=== PATIENT | male | born 1940 | race Caucasian/White ===

== ENCOUNTER 2018-01-22 11:15 | Emergency (ER) | payer OTHER ==
--- NOTE | 2018-01-22 13:13 | EDPHY ---
H & P Time Seen by Provider: 01/22/18 11:56 HPI/ROS: HPI Right thigh pain. 77-year-old male referred to the emergency department by his ventilation worker Dr. Tim Antonio. This patient notice some pain to the inner distal aspect of his right thigh about a week ago. He reports that over the last 1-2 days the pain has worsened and he has had swelling and more tenderness to this area. He denies chest pain. No shortness of breath. He was referred to the emergency department to evaluate for DVT. No history of trauma. He does not have any history of coagulopathy. No prolonged sedentary activity. ROS: Constitutional: No fever, no chills. No weakness. Respiratory: No cough. No shortness of breath. Cardiac: No chest pain, no palpitations. Musculoskeletal: As above. No other extremity pain. Skin: As above. Neurological: No headache. No focal weakness or altered sensation. Past medical history: Sepsis, bladder infections, rheumatic fever, heart murmur , knee surgery, aortic valve replacement, atrial fibrillation, pleural effusions. Social history: Nonsmoker. No alcohol. Here with his . Physical Exam: General Appearance: Alert, no distress. This patient is responding to questions appropriately and in full sentences. This patient appears well- hydrated and well-nourished. Eyes: Pupils equal and round no pallor or injection. No lid edema, erythema or injection. Right lower extremity exam: He has an area representing about 2% of his total body surface area medial distal thigh which is warm to the touch, mildly erythematous and with palpable cords. Exam is consistent with superficial thrombophlebitis. The right lower extremity is otherwise not significantly asymmetrical in comparison to the left lower extremity. The right lower extremity is neurovascularly intact. Neurological: Motor sensory function is grossly intact. Cranial nerves are normal. Gait is normal. Skin: Warm and dry, no rashes. Musculoskeletal: Neck is supple and nontender. Extremities are symmetrical. All joints range without pain or impingement. Psychiatric: No agitation. No depression. Database: EKG: Imaging: Right lower extremity Doppler venous ultrasound: Significant for superficial thrombophlebitis medial distal thigh. No evidence of DVT. The thrombus is not within 5 cm of the saphenofemoral junction. At its longus point the thrombus measures 4.5 cm. Results were discussed with staff radiologist Dr. Feroz Restrepo. Procedures: Emergency department course: Triage vital signs reviewed and are normal. Patient sent for Doppler ultrasound as noted above. 1:50 p.m., patient re-evaluated. Plan will be to treat this patient initially with high-dose ibuprofen and cool compresses for the next 5 days and then have a repeat Doppler ultrasound arranged by the patient's primary care physician or ventilation worker Dr. Tim Antonio who referred the patient to the emergency department initially. 2:00 p.m., I spoke with Dr. Tim Antonio. Results of ultrasound and treatment plan discussed with him. He will arrange to have the ultrasound repeated on Sunday. He will then see this patient on Sunday in the office. This plan was discussed with the patient. He understands the need for follow- up and repeat ultrasound in 5 days. Return to emergency department precautions have been reviewed with him. All of his questions were answered. He was discharged from the emergency department in good condition. Differential Diagnosis: The differential diagnosis on this patient includes but is not limited to superficial thrombophlebitis. Cellulitis, DVT, traumatic injury unlikely. This represents a partial list of diagnoses considered. These considerations are based on history, physical exam, past history, reassessment and diagnostic testing. Smoking Status: Never smoked Constitutional: Initial Vital Signs Temperature (C) 36.9 C 01/22/18 11:20 Heart Rate 77 01/22/18 11:20 Respiratory Rate 17 01/22/18 11:20 Blood Pressure 120/80 01/22/18 11:20 O2 Sat (%) 92 01/22/18 11:20 O2 Delivery Mode Room Air Allergies/Adverse Reactions: hydrocodone [Hydrocodone] Allergy (Severe, Verified 01/22/18 11:19) Vomiting acetaminophen [From Percocet] Allergy (Verified 01/22/18 11:19) oxycodone [From Percocet] Allergy (Verified 01/22/18 11:19) Home Medications: Medication Instructions Recorded Aspirin EC [Aspirin EC 325 mg (*)] 325 mg PO DAILY #0 tab 02/06/14 Medical Decision Making - Diagnostics Imaging Results: Imaging Impressions Extremity Venous Study 01/22/18 11:41 Impression: 1. There is no sonographic evidence of deep vein thrombosis in the right lower extremity. 2. Superficial venous thrombophlebitis involving the greater saphenous venous varices along the [id number] inner thigh, corresponding the patient's area of clinical concern. Findings were discussed with Viviane Marquez MD at 13:05, on 01/22/2018. Departure - Departure Disposition: Home, Routine, Self-Care Clinical Impression: Superficial thrombophlebitis of lower extremity Condition: Good Instructions: Superficial Thrombophlebitis (ED) Additional Instructions: Read and follow provided instructions. Follow-up with your ventilation worker, Dr. Tim Antonio. He will arrange for you to have a repeat ultrasound of your right lower extremity on Sunday. He will then see you in the office on Sunday for re-evaluation and further management. Ibuprofen dosin mg every 6 hours with meals for the next 4 days, then 600 mg every 8 hr for the next 3 days. Return to the emergency department for worsening pain, discoloration, swelling, fever or other serious concerns. Referrals: NONE *PRIMARY CARE P,. [Primary Care Provider] - As per Instructions Tim Antonio MD [Medical Doctor] - As per Instructions
[2018-01-22 14:12] VITALS: BP 120/79
== END 2018-01-22 14:19 | disposition home or self-care (01) ==
DX: I80.01 Phlebitis and thrombophlebitis of superficial vessels of right lower extremity (principal)

== ENCOUNTER 2018-01-28 15:50 | Emergency (ER) | payer OTHER ==
[2018-01-28] MEDS ORDERED: RIVAROXABAN 15 MG TAB PO ONE (16:49)
--- NOTE | 2018-01-28 16:54 | EDPHY ---
H & P Stated Complaint: dvt on us Time Seen by Provider: 01/28/18 16:21 HPI/ROS: CHIEF COMPLAINT: DVT HISTORY OF PRESENT ILLNESS: The patient is a 77-year-old man with a history of multiple valve replacements most recently 1 year ago as well as AFib that was repaired by Maze procedure. He is no longer requiring anticoagulation. About a week ago he noticed a painful swollen area to his right lower thigh. He was seen here diagnosed with thrombophlebitis. He was started on ibuprofen which she has been taking 3 times daily. He had a follow-up ultrasound today which showed extension of the thrombus into 1 of the peroneal veins in the mid calf. He was referred here to start anticoagulation. He states that overall his swelling seems better and less painful. Severity: Moderate Modifying factors: Medication REVIEW OF SYSTEMS: Constitutional: denies: chills, fever, recent illness, recent injury EENTM: denies: blurred vision, double vision, nose congestion Respiratory: denies: cough, shortness of breath Cardiac: denies: chest pain, irregular heart rate, lightheadedness, palpitations Gastrointestinal/Abdominal: denies: abdominal pain, diarrhea, nausea, vomiting, blood streaked stools Genitourinary: denies: dysuria, frequency, hematuria, pain Musculoskeletal: See HPI Skin: denies: lesions, rash, jaundice, bruising Neurological: denies: headache, numbness, paresthesia, tingling, dizziness, weakness Hematologic/Lymphatic: denies: blood clots, easy bleeding, easy bruising Immunologic/allergic: denies: HIV/AIDS, transplant 10 systems reviewed and negative except as noted EXAM: GENERAL: Well-appearing, well-nourished and in no acute distress. HEAD: Atraumatic, normocephalic. EYES: Pupils equal round and reactive to light, extraocular movements intact, sclera anicteric, conjunctiva are normal. ENT: TMs normal, nares patent, oropharynx clear without exudates. Moist mucous membranes. NECK: Normal range of motion, supple without lymphadenopathy or JVD. LUNGS: Breath sounds clear to auscultation bilaterally and equal. No wheezes rales or rhonchi. HEART: Regular rate and rhythm without murmurs, rubs or gallops. ABDOMEN: Soft, nontender, normoactive bowel sounds. No guarding, no rebound. No masses appreciated. BACK: No CVA tenderness, no spinal tenderness, step-offs or deformities EXTREMITIES: Slightly tender indurated area of superficial thrombophlebitis right medial distal thigh . No warmth. He states that it is improved significantly. No tenderness or swelling to the calf. Negative Homans NEUROLOGICAL: Cranial nerves II through XII grossly intact. Normal speech, normal gait. 5/5 strength, normal movement in all extremities, normal sensation , normal reflexes PSYCH: Normal mood, normal affect. SKIN: Warm, dry, normal turgor, no visible rashes or lesions. Source: Patient Exam Limitations: No limitations - Personal History Current Tetanus Diphtheria and Acellular Pertussis (TDAP): Unsure - Medical/Surgical History Hx Asthma: No Hx Chronic Respiratory Disease: No Hx Diabetes: No Hx Cardiac Disease: Yes Hx Renal Disease: No Hx Cirrhosis: No Hx Alcoholism: No Hx HIV/AIDS: No Hx Splenectomy or Spleen Trauma: No Other PMH: sepsis, bladder infections, rhematic fever, heart murmur, knee sx, need heart valve replacement, afib. pleural effusions. - Family History Significant Family History: No pertinent family hx - Social History Smoking Status: Never smoked Alcohol Use: Sober Drug Use: None Constitutional: Initial Vital Signs Temperature (C) 37 C 01/28/18 15:54 Heart Rate 80 01/28/18 15:54 Respiratory Rate 17 01/28/18 15:54 Blood Pressure 161/94 H 01/28/18 15:54 O2 Sat (%) 92 01/28/18 15:54 O2 Delivery Mode Room Air Allergies/Adverse Reactions: hydrocodone [Hydrocodone] Allergy (Severe, Verified 01/28/18 15:53) Vomiting acetaminophen [From Percocet] Allergy (Verified 01/28/18 15:53) oxycodone [From Percocet] Allergy (Verified 01/28/18 15:53) Home Medications: Medication Instructions Recorded Aspirin EC [Aspirin EC 325 mg (*)] 325 mg PO DAILY #0 tab 02/06/14 Rivaroxaban [Xarelto 15mg (*)] 15 mg PO BID #20 tab 01/28/18 Medical Decision Making - Diagnostics Imaging: Discussed imaging studies w/ square dance caller Radiologist ED Course/Re-evaluation: I spoke with Dr. Miguel Antonio when he called and sent the patient here. We discussed starting him on Xarelto to and following up in the clinic. He agrees with this plan and does not think the patient needs admission unless he otherwise appears toxic. The patient is essentially asymptomatic other than having this positive finding on ultrasound. We will give him a coupon for free month of Xarelto and that he will follow up with Dr. Antonio for discussion of continuation of that versus other medications and for how long. Differential Diagnosis: Partial list of the Differential diagnosis considered include but were not limited to; DVT, superficial thrombophlebitis and although unlikely based on the history and physical exam, I also considered cellulitis, abscess, Zimmerman cyst. I discussed these differential diagnoses and the plan with the patient as well as the usual and expected course. The patient understands that the diagnosis is provisional and that in medicine we are not always correct and that further workup is often warranted. Usual and customary warnings were given. All of the patient's questions were answered. The patient was instructed to return to the emergency department should the symptoms at all worsen or return, otherwise to followup with the physician as we discussed. - Data Points Medications Given: Discontinued Medications Rivaroxaban (Xarelto) 15 mg PO EDNOW ONE Stop: 01/28/18 16:50 Last Admin: 01/28/18 17:11 Dose: 15 mg Departure - Departure Disposition: Home, Routine, Self-Care Clinical Impression: Deep venous thrombosis (DVT) of right peroneal vein, Superficial thrombophlebitis of right leg Condition: Fair Instructions: Deep Vein Thrombosis (ED) Referrals: Tim Antonio MD [Primary Care Provider] - 5-7 days, call for appt. Prescriptions: Rivaroxaban [Xarelto 15mg (*)] 15 mg PO BID #20 tab
[2018-01-28 17:18] VITALS: BP 140/70
== END 2018-01-28 17:18 | disposition home or self-care (01) ==
DX: I80.01 Phlebitis and thrombophlebitis of superficial vessels of right lower extremity (principal); I82.890 Acute embolism and thrombosis of other specified veins; Z95.2 Presence of prosthetic heart valve; Z86.79 Personal history of other diseases of the circulatory system

== ENCOUNTER → 2018-01-28 | Outpatient (CLI) | payer OTHER | LOC: FIMAGING 14:22 | PROVIDERS: ATTEND Internal Medicine | DX: I80.01 Phlebitis and thrombophlebitis of superficial vessels of right lower extremity (principal); I83.91 Asymptomatic varicose veins of right lower extremity ==

== ENCOUNTER → 2018-03-04 | Outpatient (CLI) | payer OTHER | LOC: BHFA 08:30 | PROVIDERS: ATTEND Internal Medicine Cardiovascular Disease | DX: Z95.2 Presence of prosthetic heart valve (principal) ==

== ENCOUNTER → 2018-04-30 | Outpatient (CLI) | payer OTHER | LOC: FIMAGING 10:07 | PROVIDERS: ATTEND Internal Medicine | DX: I83.91 Asymptomatic varicose veins of right lower extremity (principal); I38 Endocarditis, valve unspecified; R06.02 Shortness of breath; R60.0 Localized edema; Z86.718 Personal history of other venous thrombosis and embolism ==